=== PATIENT | male | born 1995 | race Caucasian/White ===

== ENCOUNTER 2016-10-24 19:11 | Emergency (ER) | payer BC ==
[~2016-10-24] VITALS: Ht 180.3 cm; Wt 72.6 kg
[2016-10-24 19:11] VITALS: BP_SYST 133
--- NOTE | 2016-10-24 19:15 | NUR ---
Patient to ER bed 8 to gown for evaluation. Side rails up. Report given to GRETCHEN KAPADIA.
--- NOTE | 2016-10-24 19:23 | NUR ---
PT STATES HE WENT TO [place] EARLIER TODAY AT 0400, RECIEVED A CT SCAN AND CAITLYN ON HIS LACERATIONS (LT SIDE AND BACK OF HEAD) C/O 3/10 PAIN AT LACERATIONS. PT C/O TIGHTNESS AROUND HIS HEAD. NO N/V, OR D[place]. SAFETY PRECAUTIONS IN PLACE, WILL CONTINUE TO MONITOR.
--- NOTE | 2016-10-24 19:30 | NUR ---
ER Dr. GUEVARA at bedside examining patient.
[2016-10-24 20:44] VITALS: BP_SYST 133
--- NOTE | 2016-10-24 20:44 | NUR ---
Patient given written and verbal discharge instructions and verbalizes understanding. ER DR. ISMAEL MCNAIR discussed with patient the results and treatment provided. Given copies of tests performed in ER. Patient in stable condition. ID arm band removed. Patient educated on pain management and to follow up with PMD. Pain Scale 0/10. PT AMBULATED W/ STEADY GAIT. Opportunity for questions provided and answered.
== END 2016-10-24 20:44 | disposition home or self-care (01) ==
LOC: SED 19:11
DX: S09.90XA Unspecified injury of head, initial encounter (principal); R51 Headache; W21.89XA Striking against or struck by other sports equipment, initial encounter; Y93.51 Activity, roller skating (inline) and skateboarding; Y99.8 Other external cause status; Y92.89 Other specified places as the place of occurrence of the external cause
CPT/HCPCS: 70450-TC; 99284